=== PATIENT | female | born 1995 | race Caucasian/White ===

== ENCOUNTER 2018-11-11 21:46 | Emergency (ER) | payer MEDICAID, OTHER ==
--- NOTE | 2018-11-11 21:59 | ERPHSYRPT ---
- History of Present Illness Time Seen by Provider: 11/11/18 21:59 Source: patient, family Exam Limitations: no limitations Physician History: 23 y/o white female, who is over 12 weeks , presents with vomiting x 2 days. diclegis not helping. pt was being tx with macrobid for a uti. pt unable to hold any fluids down. pt has also noticed dry, swollen lips. denies cp, denies soa, denies abd pain. no vaginal bleeding. Timing/Duration: day(s) (2 to 3 ) Severity: moderate Associated Symptoms: nausea, vomiting, loss of appetite Allergies/Adverse Reactions: No Known Drug Allergies Allergy (Verified 05/09/16 09:46) Home Medications: Doxylamine Succinate/Vit B6 [Diclegis Dr 10-10 mg Tablet] 1 tablet PO DAILY PRN PRN 11/11/18 [History] Nitrofurantoin Macro 100 mg [Macrobid 100MG Capsule] 100 mg PO BID [History] Pnv,Calcium 72/Iron/Folic Acid [M-Shubham Plus Tablet] 1 tablet PO DAILY 11/11/18 [History] Hx Tetanus, Diphtheria Vaccination/Date Given: Yes Hx Influenza Vaccination/Date Given: No Hx Pneumococcal Vaccination/Date Given: No - Review of Systems Constitutional: No Symptoms Eyes: No Symptoms Ears, Nose, & Throat: Mouth Swelling, Other (lip swelling) Respiratory: No Symptoms Cardiac: No Symptoms Abdominal/Gastrointestinal: Nausea, Vomiting Genitourinary Symptoms: No Symptoms Musculoskeletal: No Symptoms Skin: No Symptoms Neurological: No Symptoms Psychological: No Symptoms Endocrine: No Symptoms Hematologic/Lymphatic: No Symptoms Immunological/Allergic: No Symptoms All Other Systems: Reviewed and Negative - Past Medical History Pertinent Past Medical History: No Neurological History: No Pertinent History ENT History: No Pertinent History Cardiac History: No Pertinent History Respiratory History: No Pertinent History Endocrine Medical History: No Pertinent History Musculoskeletal History: No Pertinent History GI Medical History: No Pertinent History History: No Pertinent History Psycho-Social History: No Pertinent History Female Reproductive Disorders: No Pertinent History - Past Surgical History Past Surgical History: No Neuro Surgical History: No Pertinent History Cardiac: No Pertinent History Respiratory: No Pertinent History Gastrointestinal: No Pertinent History Genitourinary: No Pertinent History Musculoskeletal: No Pertinent History Female Surgical History: No Pertinent History - Social History Smoking Status: Never smoker Exposure to second hand smoke: No Drug Use: none Patient Lives Alone: No - Nursing Vital Signs Nursing Vital Signs: Initial Vital Signs Temperature 97.9 F 11/11/18 21:59 Pulse Rate 111 H 11/11/18 21:59 Respiratory Rate 18 11/11/18 21:59 Blood Pressure 149/79 11/11/18 21:59 O2 Sat by Pulse Oximetry 97 11/11/18 21:59 Pain Scale Pain Intensity 0 - Physical Exam General Appearance: mild distress, alert, anxiety Eye Exam: PERRL/EOMI, eyes nml inspection Ears, Nose, Throat Exam: TMs normal, dry mucous membranes, other (upper and lower lip exudate) Neck Exam: normal inspection, non-tender, supple, full range of motion Respiratory Exam: normal breath sounds, lungs clear, airway intact, No chest tenderness, No respiratory distress Cardiovascular Exam: tachycardia Gastrointestinal/Abdomen Exam: soft, normal bowel sounds, No tenderness Pelvic Exam: not done Rectal Exam: not done Back Exam: normal inspection, normal range of motion, No CVA tenderness, No vertebral tenderness Extremity Exam: normal inspection, normal range of motion, pelvis stable Neurologic Exam: alert, oriented x 3, 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, 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 Skin Exam: normal color, warm, dry Lymphatic Exam: No adenopathy SpO2 Interpretation: normal O2 Delivery: Room Air Ordered Tests: Active Orders 24 hr Category Date Time Status BMP Stat Lab 11/11/18 22:24 Completed CBC W DIFF Stat Lab 11/11/18 22:24 Completed CULTURE,URINE Stat Lab 11/11/18 22:24 Received UA W/RFX UR CULTURE Stat Lab 11/11/18 22:24 Completed Medication Summary Generic Name Dose Route Start Last Admin Trade Name Freq PRN Reason Stop Dose Admin Nystatin 5 ml 11/12/18 22:29 11/11/18 23:08 Nystatin Suspension 60 Ml PO 11/12/18 22:30 5 ml STAT ONE Administration Discontinued Medications Generic Name Dose Route Start Last Admin Trade Name Freq PRN Reason Stop Dose Admin Sodium Chloride 1,000 mls @ 999 mls/hr 11/11/18 22:25 11/12/18 00:11 Sodium Chloride 0.9% 1000 Ml IV 11/11/18 23:25 Infused .Q1H1M STA Infusion Sodium Chloride Confirm 11/11/18 22:58 Sodium Chloride 0.9% 1000 Ml Administered 11/11/18 22:59 Dose 1,000 mls @ ud .ROUTE .STK-MED ONE Ceftriaxone Sodium/Dextrose 1 g in 50 mls @ 100 mls/hr 11/11/18 23:09 00:39 Rocephin 1 Gm-D5w 50 Ml Bag IV 11/11/18 23:38 Infused STAT STA Infusion Sodium Chloride 1,000 mls @ 999 mls/hr 11/11/18 23:10 11/12/18 00:11 Sodium Chloride 0.9% 1000 Ml IV 11/12/18 00:10 999 mls/hr .Q1H1M STA Administration Sodium Chloride Confirm 11/12/18 00:06 Sodium Chloride 0.9% 1000 Ml Administered 11/12/18 00:07 Dose 1,000 mls @ ud .ROUTE .STK-MED ONE Ceftriaxone Sodium/Dextrose Confirm 11/12/18 00:06 Rocephin 1 Gm-D5w 50 Ml Bag Administered 11/12/18 00:07 Dose 1 g in 50 mls @ ud IV .STK-MED ONE Methylprednisolone Sodium Succinate 125 mg 11/11/18 22:35 11/11/18 23:03 Solu-Medrol 125 Mg IV 11/11/18 22:36 125 mg STAT ONE Administration Methylprednisolone Sodium Succinate Confirm 11/11/18 22:58 Solu-Medrol 125 Mg Administered 11/11/18 22:59 Dose 125 mg .ROUTE .STK-MED ONE Nystatin Confirm 11/11/18 23:04 Nystatin Suspension 60 Ml Administered 11/11/18 23:05 Dose 60 ml PO .STK-MED ONE Promethazine HCl 12.5 mg 11/11/18 22:25 11/11/18 23:04 Phenergan 25 Mg Inj IM 11/11/18 22:26 12.5 mg STAT ONE Administration Promethazine HCl Confirm 11/11/18 22:58 Phenergan 25 Mg Inj Administered 11/11/18 22:59 Dose 25 mg .ROUTE .STK-MED ONE Lab/Rad Data: Laboratory Result Diagrams 11/11/18 22:24 11/11/18 22:24 Laboratory Results 11/11/18 11/11/18 11/11/18 Range/Units 22:24 22:24 22:24 WBC 9.6 (4.0-10.5) K/mm3 RBC 4.64 (4.1-5.4) M/mm3 Hgb 13.7 (12.0-16.0) gm/dl Hct 38.7 (35-47) % MCV 83.4 (78-100) fl MCH 29.5 (26-32) pg MCHC 35.4 (32-36) g/dl RDW 14.2 H (11.5-14.0) % Plt Count 188 (150-450) K/mm3 MPV 12.5 H (6-9.5) fl Gran % 75.4 H (36.0-66.0) % Eos # (Auto) 0.07 (0-0.5) Absolute Lymphs (auto) 1.62 (1.0-4.6) Absolute Monos (auto) 0.66 (0.0-1.3) Lymphocytes % 16.8 L (24.0-44.0) % Monocytes % 6.9 (0.0-12.0) % Eosinophils % 0.7 (0.00-5.0) % Basophils % 0.2 (0.0-0.4) % Absolute Granulocytes 7.26 H (1.4-6.9) Basophils # 0.02 (0-0.4) Sodium 138 (137-145) mmol/L Potassium 3.8 (3.5-5.1) mmol/L Chloride 107 (98-107) mmol/L Carbon Dioxide 12 L* (22-30) mmol/L Anion Gap 21.5 H (5-15) MEQ/L BUN 3 L (7-17) mg/dL Creatinine 0.57 (0.52-1.04) mg/dL Estimated GFR > 60.0 ML/MIN Glucose 76 (74-106) mg/dL Calcium 9.9 (8.4-10.2) mg/dL Urine Color JOHN (YELLOW) Urine Appearance CLOUDY (CLEAR) Urine pH 5.0 (5-6) Ur Specific [place] 1.027 (1.005-1.025) Urine Protein 100 (Negative) Urine Ketones MODERATE (NEGATIVE) Urine Blood MODERATE (0-5) Manoj/ul Urine Nitrite NEGATIVE (NEGATIVE) Urine Bilirubin NEGATIVE (NEGATIVE) Urine Urobilinogen 2 (0-1) mg/dL Ur Leukocyte Esterase SMALL (NEGATIVE) Urine WBC (Auto) 16-25 (0-5) /HPF Urine RBC (Auto) 11-15 (0-2) /HPF U Hyaline Cast (Auto) 6-10 (0-2) /LPF U Epithel Cells (Auto) FEW (FEW) /HPF Urine Bacteria (Auto) MANY (NEGATIVE) /HPF Urine Mucus (Auto) SLIGHT (NEGATIVE) /HPF Urine Culture Reflexed YES (NO) Urine Glucose 50 (NEGATIVE) mg/dL - Progress Progress: improved, re-examined Progress Note: 11/11/18 23:10 i had a long d/w pt and her sig other regarding her dx and tx plan including all medications. i discussed the risks, benefits and alternatives and their potential negative effects on fetus. she has opted for the following: one phenergan im injection, nystatin swish and spit, ivf, and single iv dose of rocephin. she will follow up with dr. tyler on Tuesday11/13/18. Counseled pt/family regarding: lab results, diagnosis, need for follow-up - Departure Departure Disposition: Home Clinical Impression: UTI (urinary tract infection), Oral candidiasis, Dehydration, Vomiting affecting Condition: Stable Critical Care Time: No Referrals: YUMIKO TYLER MD [Primary Care Provider] - Additional Instructions: drink plenty of fluids. keep your appointment with dr. tyler on tuesdayNovember 13. swish and spit the nystatin liquid. Prescriptions: Nystatin 60 ml [Nystatin SUSPENSION 60 ML] 5 ml PO Q8H #60 ml
[2018-11-11] MEDS ORDERED: Sodium Chloride 0.9% 1000 ML 1,000 ML IV STA ×2 (22:25→23:10)
[2018-11-11] MEDS ORDERED: Phenergan 25 MG INJ IM ONE (22:25)
[2018-11-11] MEDS ORDERED: solu-MEDROL 125 MG IV ONE (22:35)
[2018-11-11] MEDS ORDERED: Sodium Chloride 0.9% 1000 ML 1,000 ML ONE (22:58)
[2018-11-11] MEDS ORDERED: solu-MEDROL 125 MG ONE (22:58)
[2018-11-11] MEDS ORDERED: Phenergan 25 MG INJ ONE (22:58)
[2018-11-11 22:59] LABS: Appearance CLOUDY (CLEAR); Bacteria MANY /HPF (NEGATIVE); Bilirubin NEGATIVE (NEGATIVE); Blood MODERATE Ery/ul (0-5); Epithelial Cells FEW /HPF (FEW); Glucose 50 mg/dL (NEGATIVE); Ketones MODERATE (NEGATIVE); Leukocyte Esterase SMALL (NEGATIVE); Mucus SLIGHT /HPF (NEGATIVE); Nitrite NEGATIVE (NEGATIVE); Protein,Urine Dip 100 (Negative); Specific Gravity 1.027 (1.005-1.025); Urobilinogen 2 mg/dL (0-1)
[2018-11-11 23:00] LABS: BASOPHIL % 0.2 % (0.0-0.4); Basophil (Absolute #) 0.02 (0-0.4); Eosinophil % 0.7 % (0.00-5.0); Eosinophil (Absolute #) 0.07 (0-0.5); Granulocyte Absolute (ANC) 7.26 (1.4-6.9); Granulocytes % 75.4 % (36.0-66.0); Hematocrit 38.7 % (35-47); Hemoglobin 13.7 gm/dl (12.0-16.0); Lymphocyte (Absolute #) 1.62 (1.0-4.6); Lymphocytes % 16.8 % (24.0-44.0); Mean Cell Volume 83.4 fl (78-100); Mean Corpuscular Hemoglobin 29.5 pg (26-32); Mean Corpuscular Hgb Concent. 35.4 g/dl (32-36); Mean Platelet Volume 12.5 fl (6-9.5); Monocyte (Absolute #) 0.66 (0.0-1.3); Monocytes % 6.9 % (0.0-12.0); Platelet Count 188 K/mm3 (150-450); Red Blood Count 4.64 M/mm3 (4.1-5.4); Red Cell Distribution Width 14.2 % (11.5-14.0); White Blood Count 9.6 K/mm3 (4.0-10.5)
[2018-11-11] MEDS ORDERED: Nystatin SUSPENSION 60 ML PO ONE (23:04)
[2018-11-11 23:09] LABS: ANION GAP 21.5 MEQ/L (5-15); BLOOD UREA NITROGEN 3 mg/dL (7-17); CHLORIDE 107 mmol/L (98-107); Calcium 9.9 mg/dL (8.4-10.2); Creatinine 1 0.57 mg/dL (0.52-1.04); Glucose 76 mg/dL (74-106); Potassium 3.8 mmol/L (3.5-5.1); SODIUM 138 mmol/L (137-145)
[2018-11-11] MEDS ORDERED: ROCEPHIN 1 Gm-D5w 50 ml Bag** 1 G/50 ML IVPB IV STA (23:09)
[2018-11-11 23:22] LABS: Carbon Dioxide 12 mmol/L (22-30)
[2018-11-11 23:42] VITALS: O2SAT 100
[2018-11-12] MEDS ORDERED: ROCEPHIN 1 Gm-D5w 50 ml Bag** 1 G/50 ML IVPB IV ONE (00:06)
[2018-11-12] MEDS ORDERED: Sodium Chloride 0.9% 1000 ML 1,000 ML ONE (00:06)
[2018-11-12 01:06] VITALS: BP 95/54; PULSE 85
[2018-11-12 02:21] LABS: Slide Review 1 YES
[2018-11-12] MEDS ORDERED: Nystatin SUSPENSION 60 ML PO ONE (22:29)
== END 2018-11-12 01:19 | disposition home or self-care (01) ==
LOC: ED 21:46
DX: O23.41 Unspecified infection of urinary tract in pregnancy, first trimester (principal); O21.0 Mild hyperemesis gravidarum; Z3A.12 12 weeks gestation of pregnancy; E86.0 Dehydration; B37.0 Candidal stomatitis
CPT/HCPCS: 36415; 80048; 81001; 85025; 87077; 87086; 96360; 96361; 96365; 96372; 96374; 99284; J0696; J2550; J2930; A9270-GY

== ENCOUNTER 2019-05-15 05:09 | Inpatient (IN) | payer OTHER ==
[2019-05-15 07:19] LABS: Amphetamine,Urine NEGATIVE (NEGATIVE); Barbiturate,Urine NEGATIVE (NEGATIVE); Benzodiazepine,Urine NEGATIVE (NEGATIVE); Cocaine,Urine NEGATIVE (NEGATIVE); Methadone,Urine NEGATIVE (NEGATIVE); Opiate,Urine NEGATIVE (NEGATIVE); PCP,Urine NEGATIVE (NEGATIVE); THC,Urine NEGATIVE (NEGATIVE)
[2019-05-15 07:58] LABS: Amourphous Crystal FEW /HPF (NEGATIVE); Appearance CLOUDY (CLEAR); Bacteria RARE /HPF (NEGATIVE); Bilirubin NEGATIVE (NEGATIVE); Blood MODERATE Ery/ul (0-5); Epithelial Cells FEW /HPF (FEW); Glucose NEGATIVE (NEGATIVE); Hyaline Casts 0-2 /LPF (0-2); Ketones NEGATIVE (NEGATIVE); Leukocyte Esterase NEGATIVE (NEGATIVE); Mucus SLIGHT /HPF (NEGATIVE); Nitrite NEGATIVE (NEGATIVE); Protein,Urine Dip NEGATIVE (Negative); Specific Gravity 1.019 (1.005-1.025); Urobilinogen 2 mg/dL (0-1)
[2019-05-15] MEDS ORDERED: XYLOCAINE 1% HCL 20 ML MDV IJ PRN (08:37)
[2019-05-15] MEDS ORDERED: BRETHINE 1 MG/ML SQ PRN (08:41)
[2019-05-15] MEDS ORDERED: PITOCIN 30 UNITS/ LR 500 ML 500 ML IV SCH (09:00)
[2019-05-15 09:04] LABS: Absolute Neutrophil Ct (ANC) 7.83 (1.4-6.9); BASOPHIL % 0.1 % (0.0-0.4); Basophil (Absolute #) 0.01 (0-0.4); Eosinophil % 0.2 % (0.00-5.0); Eosinophil (Absolute #) 0.02 (0-0.5); Hematocrit 34.8 % (35-47); Hemoglobin 11.5 gm/dl (12.0-16.0); Lymphocyte (Absolute #) 1.26 (1.0-4.6); Lymphocytes % 13.1 % (24.0-44.0); Mean Cell Volume 91.1 fl (78-100); Mean Corpuscular Hemoglobin 30.1 pg (26-32); Mean Platelet Volume 12.4 fl (6-9.5); Monocyte (Absolute #) 0.52 (0.0-1.3); Monocytes % 5.4 % (0.0-12.0); Neutrophil % 81.2 % (36.0-66.0); Platelet Count 129 K/mm3 (150-450); Red Blood Count 3.82 M/mm3 (4.1-5.4); Red Cell Distribution Width 14.1 % (11.5-14.0); White Blood Count 9.6 K/mm3 (4.0-10.5)
[2019-05-15] MEDS: Lactated Ringers 1,000 ML IV SCH ×3 (09:07→21:52)
[2019-05-15] MEDS ORDERED: Zofran 4 MG/2 ML VIAL IV PRN (11:50)
[2019-05-15] MEDS ORDERED: Ephedrine Sulfate 50 MG/ML IV PRN (12:26)
[2019-05-15] MEDS ORDERED: OB EPIDURAL NAROPIN/SUFENTANIL IN NACL EPIDURAL PRN (12:26)
[2019-05-15] MEDS ORDERED: Lactated Ringers 1,000 ML IV ONE ×2 (12:26→21:43)
[2019-05-15] MEDS ORDERED: XYLOCAINE 2%/Epi 1:200000 20ML VIAL MPF ONE (12:32)
[2019-05-15] MEDS ORDERED: XYLOCAINE 2%/Epi 1:200000 20ML VIAL MPF IJ SCH (13:00)
[2019-05-15] MEDS ORDERED: Lactated Ringers 500 ML IV ONE (13:30)
[2019-05-15] MEDS ORDERED: NORCO 5/325 MG PO PRN (17:05)
[2019-05-15] MEDS ORDERED: TYLENOL EXTRA STRENGTH 500 MG PO PRN (17:05)
[2019-05-15] MEDS ORDERED: Anucort-HC SUPPOSITORY PR PRN (17:05)
[2019-05-15] MEDS ORDERED: Mylicon 80MG PO PRN (17:05)
[2019-05-15] MEDS ORDERED: Dulcolax 10 MG SUPP PR PRN (17:05)
[2019-05-15] MEDS ORDERED: Ambien 10 MG PO PRN (17:05)
[2019-05-15] MEDS ORDERED: CORTISONE 1% CREAM TP PRN (17:05)
[2019-05-15] MEDS: Dermoplast Spray TP PRN (18:32)
[2019-05-15] MEDS: TUCKS TP PRN (18:32)
[2019-05-15] MEDS: LANSINOH 40 GM TOP PRN (18:32)
[2019-05-15] MEDS: MOTRIN 400 MG PO PRN (18:44)
[2019-05-15] MEDS: Colace 100 MG PO SCH (21:52)
[2019-05-16 04:56] LABS: Absolute Neutrophil Ct (ANC) 7.67 (1.4-6.9); BASOPHIL % 0.1 % (0.0-0.4); Basophil (Absolute #) 0.01 (0-0.4); Eosinophil % 0.2 % (0.00-5.0); Eosinophil (Absolute #) 0.02 (0-0.5); Hematocrit 28.5 % (35-47); Hemoglobin 9.2 gm/dl (12.0-16.0); Lymphocyte (Absolute #) 2.03 (1.0-4.6); Mean Cell Volume 92.5 fl (78-100); Mean Corpuscular Hgb Concent. 32.3 g/dl (32-36); Mean Platelet Volume 12.8 fl (6-9.5); Monocyte (Absolute #) 0.95 (0.0-1.3); Monocytes % 8.9 % (0.0-12.0); Neutrophil % 71.8 % (36.0-66.0); Platelet Count 104 K/mm3 (150-450); Red Blood Count 3.08 M/mm3 (4.1-5.4); Red Cell Distribution Width 14.2 % (11.5-14.0); White Blood Count 10.7 K/mm3 (4.0-10.5)
[2019-05-16 04:58] LABS: Mean Corpuscular Hemoglobin 29.8 pg (26-32)
[2019-05-16] MEDS: MOTRIN 400 MG PO PRN ×3 (08:07→22:08)
[2019-05-16] MEDS: FERREX 150 PO SCH (08:38)
[2019-05-16] MEDS: Colace 100 MG PO SCH ×2 (08:38→22:08)
[2019-05-16] MEDS: TUCKS TP PRN (18:36)
[2019-05-16] MEDS: Dermoplast Spray TP PRN (18:36)
[2019-05-17] MEDS: MOTRIN 400 MG PO PRN ×2 (07:48→16:07)
--- NOTE | 2019-05-17 08:51 | PCM.DS ---
Discharge Summary Date of Admission: 05/15/19 08:15 Admitting Physician: YUMIKO HOOVER Consults: Consults on Case 05/15/19 12:26 Notify Anesthesia Provider PRN 05/15/19 17:05 Notify Physician ROUTINE Primary Care Provider: YUMIKO HOOVER Allergies Allergies No Known Drug Allergies Allergy (Verified 05/15/19 05:57) Hospital Summary - Hospital Course Hospital Course: patient arrived on 05/15 with SROM, labor was augmented with pitocin. had an uncomplicated with second degree perineal laceration repair. and well bonded with her infant. - Vitals & Intake/Output Vital Signs: Vital Signs Temperature 97.9 F 05/17/19 04:30 Pulse Rate 76 05/17/19 04:30 Respiratory Rate 16 05/17/19 04:30 Blood Pressure 99/63 05/17/19 04:30 O2 Sat by Pulse Oximetry 100 05/16/19 04:30 Intake & Output: Intake & Output 05/14/19 05/15/19 05/16/19 05/17/19 11:59 11:59 11:59 11:59 Intake Total 5000 2150 Balance 5000 2150 Weight 86.183 kg - Lab Result Diagrams: 05/16/19 04:15 Micro Results-Entire Visit: Microbiology 05/15/19 06:15 Urine Culture - Final Clean Catch Midstream MIXED SIDNEY; 3 OR MORE TYPES. NO PREDOMINANT ORGANISM. NO FURTHER WORKUP. PLEASE RESUBMIT IF CLINICALLY INDICATED. Discharge Exam General Appearance: no apparent distress, alert Respiratory Exam: normal breath sounds, lungs clear, No respiratory distress Cardiovascular Exam: regular rate/rhythm, normal heart sounds Gastrointestinal/Abdomen Exam: soft, No tenderness, No mass Extremity Exam: normal inspection, normal range of motion Skin Exam: normal color, warm, dry Final Diagnosis/Problem List - Final Discharge Diagnosis/Problem (1) Vaginal delivery Current Visit: Yes Status: Acute Code(s): O80 - ENCOUNTER FOR FULL-TERM UNCOMPLICATED DELIVERY (2) Second degree perineal laceration during delivery Current Visit: Yes Status: Acute Code(s): O70.1 - SECOND DEGREE PERINEAL LACERATION DURING DELIVERY (3) Mother currently breast-feeding Current Visit: Yes Status: Acute Code(s): Z39.1 - ENCOUNTER FOR CARE AND EXAMINATION OF LACTATING MOTHER - Discharge Disposition: Home, Self-Care Condition: Stable Prescriptions: New Ibuprofen 600 mg PO TID PRN #30 tablet Continue Pnv,Calcium 72/Iron/Folic Acid [M-Shubham Plus Tablet] 1 tablet PO DAILY Follow up with: YUMIKO HOOVER MD [Primary Care Provider] - 1 Week
[2019-05-17] MEDS: Colace 100 MG PO SCH (09:35)
[2019-05-17] MEDS: FERREX 150 PO SCH (09:35)
[2019-05-17] MEDS: Lactated Ringers 1,000 ML IV SCH ×2 (09:37→15:45)
[2019-05-17] MEDS: TUCKS TP PRN (11:01)
[2019-05-17 13:16] VITALS: BP 105/63; PULSE 91; O2SAT 95
[2019-05-17] MEDS: LANSINOH 40 GM TOP PRN (15:13)
== END 2019-05-17 17:15 | disposition home or self-care (01) | DRG 807 ==
LOC: OB 05:09 → OBSVTOIN 08:15 → MED SURG 05-16 16:11
PROVIDERS: ADMIT Family Medicine; ATTEND Family Medicine
PROC: 10E0XZZ Delivery of Products of Conception, External Approach (ICD-10-PCS; principal; 2019-05-15)
PROC: 0KQM0ZZ Repair Perineum Muscle, Open Approach (ICD-10-PCS; 2019-05-15)
DX: O70.1 Second degree perineal laceration during delivery (principal); Z37.0 Single live birth; Z3A.38 38 weeks gestation of pregnancy
CPT/HCPCS: 36415; 80307; 81001; 81003; 83986; 85025; 87086; 87340; G0378; J2590; J2795; A9270-GY

== ENCOUNTER 2021-11-03 18:08 | Emergency (ER) | payer OTHER ==
[2021-11-03] MEDS ORDERED: Zofran 4 MG/2 ML VIAL IV ONE (18:25)
[2021-11-03] MEDS ORDERED: Sodium Chloride 0.9% 1000 ML 1,000 ML IV STA (18:25)
[2021-11-03] MEDS ORDERED: TORAdol 30 mg Injection IV ONE (18:25)
[2021-11-03] MEDS ORDERED: TORAdol 30 mg Injection ONE (18:46)
[2021-11-03] MEDS ORDERED: Zofran 4 MG/2 ML VIAL ONE (18:46)
[2021-11-03] MEDS ORDERED: Sodium Chloride 0.9% 1000 ML 1,000 ML ONE (18:46)
[2021-11-03 19:10] LABS: Absolute Neutrophil Ct (ANC) 9.21 (1.4-6.9); Basophil (Absolute #) 0.02 (0-0.4); Eosinophil % 0.4 % (0.00-5.0); Eosinophil (Absolute #) 0.05 (0-0.5); Hematocrit 37.7 % (35-47); Hemoglobin 12.1 gm/dl (12.0-16.0); Lymphocyte (Absolute #) 1.46 (1.0-4.6); Mean Cell Volume 85.1 fl (78-100); Mean Corpuscular Hemoglobin 27.3 pg (26-32); Mean Corpuscular Hgb Concent. 32.1 g/dl (32-36); Mean Platelet Volume 12.1 fl (7.5-11.0); Monocyte (Absolute #) 0.47 (0.0-1.3); Monocytes % 4.2 % (0.0-12.0); Neutrophil % 82.2 % (36.0-66.0); Platelet Count 200 K/mm3 (150-450); Red Blood Count 4.43 M/mm3 (4.1-5.4); Red Cell Distribution Width 14.7 % (11.5-14.0); White Blood Count 11.2 K/mm3 (4.0-10.5)
[2021-11-03 19:24] LABS: ALBUMIN 4.2 g/dL (3.5-5.0); ALKALINE PHOSPHATASE 73 U/L (38-126); ANION GAP 13.9 MEQ/L (5-15); BLOOD UREA NITROGEN 8 mg/dL (7-17); CHLORIDE 106 mmol/L (98-107); Calcium 9.1 mg/dL (8.4-10.2); Carbon Dioxide 25 mmol/L (22-30); Creatinine 1 0.64 mg/dL (0.52-1.04); EST GLOMERULAR FILTRATION RATE > 60.0 ML/MIN; Glucose 151 mg/dL (74-106); LIPASE 75 U/L (23-300); Potassium 4.2 mmol/L (3.5-5.1); SGOT/AST 20 U/L (14-36); SGPT/ALT 23 U/L (0-35); SODIUM 140 mmol/L (137-145); Total Protein 7.7 g/dL (6.3-8.2)
[2021-11-03 19:25] LABS: Bacteria RARE /HPF (NEGATIVE); Epithelial Cells RARE /HPF (FEW); Mucus SLIGHT /HPF (NEGATIVE); RBC 26-50 /HPF (0-2)
[2021-11-03 19:26] LABS: Appearance CLEAR (CLEAR); Bilirubin NEGATIVE (NEGATIVE); Glucose NEGATIVE (NEGATIVE); Ketones NEGATIVE (NEGATIVE); Specific Gravity >=1.030 (1.005-1.025)
[2021-11-03 19:27] LABS: Nitrite NEGATIVE (NEGATIVE); Protein,Urine Dip TRACE (Negative); RBC MODERATE Ery/ul (0-5); Urine Cultured Indicated? YES; Urobilinogen 0.2 mg/dL (0-1)
[2021-11-03 19:28] LABS: Dipstick done @ ? MAIN LAB
--- NOTE | 2021-11-03 20:23 | ERPHSYRPT ---
- History of Present Illness Time Seen by Provider: 11/03/21 18:30 Historian: patient Exam Limitations: no limitations Patient Subjective Stated Complaint: Pt states 'About two hours ago I started to have horrible abdomen pain. It is stabbing and hurts." Triage Nursing Assessment: Pt presented alert and oriented X 3, skin wpd. Pt ambulates with a hunched over gait, able to speak in clear full setnences pt hoding her abdomen. Physician History: Patient is a 26-year-old female presents to our ED for evaluation of right upper quadrant pain. Patient states she was at home relaxing when pain started. Pain described scribed as a sharp sensation. Pain was constant. Pain was present upon arrival to our ED. No trauma. No fever. No specific association. Patient states the pain was not associated with meals. Patient denies a history of the same. No associated chest pain or shortness of breath. No nausea vomit ing or diaphoresis. Symptoms are mild to moderate in intensity. Palpation to right upper quadrant reproduces symptoms. Pain improves with rest. Patient voices no other complaint or concerns at this time. Timing/Duration: today, improved Quality: aching Abdominal Pain Onset Location: RUQ Pain Radiation: no radiation Severity of Pain-Max: moderate Severity of Pain-Current: mild Modifying Factors: Improves With: nothing Associated Symptoms: denies symptoms, No chest pain, No diarrhea, No fever /chills, No nausea, No neck pain, No shortness of breath, No syncope Previous symptoms: no prior history Allergies/Adverse Reactions: No Known Drug Allergies Allergy (Verified 05/15/19 05:57) Home Medications: Norgestimate-Ethinyl Estradiol [Tri Femynor 28 Tablet] 1 tab PO DAILY 11/03/21 [History] Sertraline HCl 50 mg [Zoloft 50 mg Tablet] 50 mg PO DAILY 11/03/21 [History] Hx Tetanus, Diphtheria Vaccination/Date Given: Yes Hx Influenza Vaccination/Date Given: No Hx Pneumococcal Vaccination/Date Given: No Immunizations Up to Date: Yes Travel Risk - International Travel Have you traveled outside of the country in past 3 weeks: No - Coronavirus Screening Are you exhibiting any of the following symptoms?: No Close contact with a COVID-19 positive Pt in past 14-21 Days: No - Vaccine Status Have you recieved a Covid-19 vaccination: Yes 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: [employer] - Vaccination Dates Date of 2cond Vaccination (if applicable): 2020 - Review of Systems Constitutional: No Symptoms, No Fever, No Chills Eyes: No Symptoms Ears, Nose, & Throat: No Symptoms Respiratory: No Symptoms, No Cough, No Dyspnea Cardiac: No Symptoms, No Chest Pain, No Edema, No Syncope Abdominal/Gastrointestinal: No Symptoms, No Abdominal Pain, No Nausea, No Vomiting, No Diarrhea Genitourinary Symptoms: No Symptoms, No Dysuria Musculoskeletal: No Symptoms, No Back Pain, No Neck Pain Skin: No Symptoms, No Rash Neurological: No Symptoms, No Dizziness, No Focal Weakness, No Sensory Changes Psychological: No Symptoms Endocrine: No Symptoms Hematologic/Lymphatic: No Symptoms Immunological/Allergic: No Symptoms All Other Systems: Reviewed and Negative - Past Medical History Pertinent Past Medical History: No Neurological History: No Pertinent History ENT History: No Pertinent History Cardiac History: No Pertinent History Respiratory History: No Pertinent History Endocrine Medical History: No Pertinent History Musculoskeletal History: No Pertinent History GI Medical History: No Pertinent History History: Other Psycho-Social History: Depression Female Reproductive Disorders: No Pertinent History Other Medical History: recurrent UTI at the beginning of - Past Surgical History Past Surgical History: No Neuro Surgical History: No Pertinent History Cardiac: No Pertinent History Respiratory: No Pertinent History Gastrointestinal: No Pertinent History Genitourinary: No Pertinent History Musculoskeletal: No Pertinent History Female Surgical History: No Pertinent History - Social History Smoking Status: Never smoker Exposure to second hand smoke: No Drug Use: none Patient Lives Alone: No - Female History Hx Last Menstrual Period: 10/18/2021 Hx Now: No - Nursing Vital Signs Nursing Vital Signs: Initial Vital Signs Temperature 97.2 F 11/03/21 18:16 Pulse Rate 88 11/03/21 18:16 Respiratory Rate 22 11/03/21 18:16 Blood Pressure 118/78 11/03/21 18:16 O2 Sat by Pulse Oximetry 98 11/03/21 18:16 Pain Scale Pain Intensity 0 - Physical Exam General Appearance: no apparent distress, alert Eye Exam: PERRL/EOMI, eyes nml inspection Ears, Nose, Throat Exam: normal ENT inspection, TMs normal, pharynx normal, moist mucous membranes Neck Exam: normal inspection, non-tender, supple, full range of motion Respiratory Exam: normal breath sounds, lungs clear, airway intact, No respiratory distress Cardiovascular Exam: regular rate/rhythm, normal heart sounds, normal peripheral pulses Gastrointestinal/Abdomen Exam: soft, normal bowel sounds, No tenderness, No mass Back Exam: normal inspection, normal range of motion, No CVA tenderness, No vertebral tenderness Extremity Exam: normal inspection, normal range of motion, pelvis stable Neurologic Exam: alert, oriented x 3, cooperative, normal mood/affect, nml cerebellar function, sensation nml, No motor deficits Skin Exam: normal color, warm, dry Lymphatic Exam: No adenopathy SpO2 Interpretation: normal SpO2: 98 O2 Delivery: Room Air - Course Nursing assessment & vital signs reviewed: Yes - CT Exams Abdomen/Pelvis CT Interpretation: Tele-radiologist Report (No comps. Mild distended gallbladder with 4 mm gallstone. 14 cm splenomegaly. 3.9 cm right ovarian cyst. L5 spondylolysis without spondylolisthesis.) Ordered Tests: Active Orders 24 hr Category Date Time Status IV Insertion STAT Care 11/03/21 18:25 Active ABDOMEN AND PELVIS W/0 CONTRAS [CT] Stat Exams 11/03/21 18:25 Taken CBC W DIFF Stat Lab 11/03/21 18:45 Completed CMP Stat Lab 11/03/21 18:45 Completed CULTURE,URINE Stat Lab 11/03/21 Received HCG,QUALITATIVE URINE Stat Lab 11/03/21 18:55 Completed LIPASE Stat Lab 11/03/21 18:45 Completed TROPONIN Q3H Lab 11/03/21 18:45 Completed TROPONIN Q3H Lab 11/03/21 21:30 Ordered TROPONIN Q3H Lab 11/04/21 00:30 Ordered TROPONIN Q3H Lab 11/04/21 03:30 Ordered TROPONIN Q3H Lab 11/04/21 06:30 Ordered UA W/RFX CULTURE Stat Lab 11/03/21 Completed Medication Summary Discontinued Medications Generic Name Dose Route Start Last Admin Trade Name Freq PRN Reason Stop Dose Admin Sodium Chloride 1,000 mls @ 999 mls/hr 11/03/21 18:25 11/03/21 18:48 Sodium Chloride 0.9% 1000 Ml IV 11/03/21 19:25 999 mls/hr .Q1H1M STA Administration Sodium Chloride Confirm 11/03/21 18:46 Sodium Chloride 0.9% 1000 Ml Administered 11/03/21 18:47 Dose 1,000 mls @ ud .ROUTE .STK-MED ONE Ketorolac Tromethamine 30 mg 11/03/21 18:25 11/03/21 18:52 Ketorolac Tromethamine 30 Mg/Ml Inj IV 11/03/21 18:26 30 mg STAT ONE Administration Ketorolac Tromethamine Confirm 11/03/21 18:46 Ketorolac Tromethamine 30 Mg/Ml Inj Administered 11/03/21 18:47 Dose 30 mg .ROUTE .STK-MED ONE Ondansetron HCl 4 mg 11/03/21 18:25 11/03/21 18:50 Ondansetron Hcl 4 Mg/2 Ml Vial IV 11/03/21 18:26 4 mg STAT ONE Administration Ondansetron HCl Confirm 11/03/21 18:46 Ondansetron Hcl 4 Mg/2 Ml Vial Administered 11/03/21 18:47 Dose 4 mg .ROUTE .STK-MED ONE Lab/Rad Data: Laboratory Result Diagrams 11/03/21 18:45 11/03/21 18:45 Laboratory Results 11/03/21 11/03/21 11/03/21 Range/Units Unknown 18:55 18:45 WBC (4.0-10.5) K/mm3 RBC (4.1-5.4) M/mm3 Hgb (12.0-16.0) gm/dl Hct (35-47) % MCV (78-100) fl MCH (26-32) pg MCHC (32-36) g/dl RDW (11.5-14.0) % Plt Count (150-450) K/mm3 MPV (7.5-11.0) fl Gran % (36.0-66.0) % Eos # (Auto) (0-0.5) Absolute Lymphs (auto) (1.0-4.6) Absolute Monos (auto) (0.0-1.3) Lymphocytes % (24.0-44.0) % Monocytes % (0.0-12.0) % Eosinophils % (0.00-5.0) % Basophils % (0.0-0.4) % Absolute Granulocytes (1.4-6.9) Basophils # (0-0.4) Sodium (137-145) mmol/L Potassium (3.5-5.1) mmol/L Chloride (98-107) mmol/L Carbon Dioxide (22-30) mmol/L Anion Gap (5-15) MEQ/L BUN (7-17) mg/dL Creatinine (0.52-1.04) mg/dL Estimated GFR ML/MIN Glucose (74-106) mg/dL Calcium (8.4-10.2) mg/dL Total Bilirubin (0.2-1.3) mg/dL AST (14-36) U/L ALT (0-35) U/L Alkaline Phosphatase (38-126) U/L Troponin I < 0.012 (0.000-0.034) ng/mL Serum Total Protein (6.3-8.2) g/dL Albumin (3.5-5.0) g/dL Lipase (23-300) U/L Urinalys Dipstick Clnc MAIN LAB Urine Color YELLOW (YELLOW) Urine Appearance CLEAR (CLEAR) Urine pH 7.0 (5-6) Ur Specific [place] >=1.030 (1.005-1.025) POC Urine Protein Conf TRACE (Negative) Urine Ketones NEGATIVE (NEGATIVE) Urine Nitrite NEGATIVE (NEGATIVE) Urine Bilirubin NEGATIVE (NEGATIVE) Urine Urobilinogen 0.2 (0-1) mg/dL Urine Leukocytes NEGATIVE (NEGATIVE) Urine WBC (Auto) 3-5 (0-5) /HPF Urine RBC (Auto) 26-50 (0-2) /HPF U Epithel Cells (Auto) RARE (FEW) /HPF Urine Bacteria (Auto) RARE (NEGATIVE) /HPF Urine RBC MODERATE (0-5) Manoj/ul Urine Mucus (Auto) SLIGHT (NEGATIVE) /HPF Ur Culture Indicated? YES Urine Glucose NEGATIVE (NEGATIVE) mg/dL Urine HCG, Qual NEGATIVE (Negative) 11/03/21 11/03/21 Range/Units 18:45 18:45 WBC 11.2 H (4.0-10.5) K/mm3 RBC 4.43 (4.1-5.4) M/mm3 Hgb 12.1 (12.0-16.0) gm/dl Hct 37.7 (35-47) % MCV 85.1 (78-100) fl MCH 27.3 (26-32) pg MCHC 32.1 (32-36) g/dl RDW 14.7 H (11.5-14.0) % Plt Count 200 (150-450) K/mm3 MPV 12.1 H (7.5-11.0) fl Gran % 82.2 H (36.0-66.0) % Eos # (Auto) 0.05 (0-0.5) Absolute Lymphs (auto) 1.46 (1.0-4.6) Absolute Monos (auto) 0.47 (0.0-1.3) Lymphocytes % 13.0 L (24.0-44.0) % Monocytes % 4.2 (0.0-12.0) % Eosinophils % 0.4 (0.00-5.0) % Basophils % 0.2 (0.0-0.4) % Absolute Granulocytes 9.21 H (1.4-6.9) Basophils # 0.02 (0-0.4) Sodium 140 (137-145) mmol/L Potassium 4.2 (3.5-5.1) mmol/L Chloride 106 (98-107) mmol/L Carbon Dioxide 25 (22-30) mmol/L Anion Gap 13.9 (5-15) MEQ/L BUN 8 (7-17) mg/dL Creatinine 0.64 (0.52-1.04) mg/dL Estimated GFR > 60.0 ML/MIN Glucose 151 H (74-106) mg/dL Calcium 9.1 (8.4-10.2) mg/dL Total Bilirubin 0.20 (0.2-1.3) mg/dL AST 20 (14-36) U/L ALT 23 (0-35) U/L Alkaline Phosphatase 73 (38-126) U/L Troponin I (0.000-0.034) ng/mL Serum Total Protein 7.7 (6.3-8.2) g/dL Albumin 4.2 (3.5-5.0) g/dL Lipase 75 (23-300) U/L Urinalys Dipstick Clnc Urine Color (YELLOW) Urine Appearance (CLEAR) Urine pH (5-6) Ur Specific [place] (1.005-1.025) POC Urine Protein Conf (Negative) Urine Ketones (NEGATIVE) Urine Nitrite (NEGATIVE) Urine Bilirubin (NEGATIVE) Urine Urobilinogen (0-1) mg/dL Urine Leukocytes (NEGATIVE) Urine WBC (Auto) (0-5) /HPF Urine RBC (Auto) (0-2) /HPF U Epithel Cells (Auto) (FEW) /HPF Urine Bacteria (Auto) (NEGATIVE) /HPF Urine RBC (0-5) Manoj/ul Urine Mucus (Auto) (NEGATIVE) /HPF Ur Culture Indicated? Urine Glucose (NEGATIVE) mg/dL Urine HCG, Qual (Negative) - Progress Progress: improved Progress Note: Patient reassessed. Pain resolved. Case discussed with Dr. Carey Of general surgery who feels patient may get an outpatient gallbladder ultrasound and follow-up in his office.No indication for obtaining a gallbladder ultrasound through the emergency room at this time.Plan of care discussed with patient. She agrees to obtain the outpatient ultrasound as recommended. Mother at bedside. They voiced no other complaints or concerns at this time. Portions of this note were created with voice recognition technology. There may be grammatical, spelling, punctuation or sound alike errors 11/03/21 20:[address] Ivette Will see patient in: office Counseled pt/family regarding: lab results, diagnosis, need for follow-up, rad results - Departure Departure Disposition: Home Clinical Impression: Cholelithiasis, Splenomegaly, Right ovarian cyst, Spondylolisthesis at L5-S1 level, Abdominal pain, Leukocytosis (leucocytosis), Hematuria Condition: Stable Critical Care Time: No Referrals: YUMIKO HOOVER MD [Primary Care Provider] - Follow up/PCP as directed MELINDA SAMUEL [COURTESY STAFF] - Follow up/PCP as directed Additional Instructions: Discharge/Care Plan DICKSON YANES was seen on 11/03/21 in the Emergency Room. The patient was counseled regarding Diagnosis,Lab results, Imaging studies, need for follow up and when to return to the Emergency Room. Prescriptions given: Discharge Note I have spoken with the patient and/or caregivers. I have explained the patient's condition, diagnosis and treatment plan based on the information available to me at this time. I have answered the patient's and/or caregiver's questions and addressed any concerns. The patient and/or caregivers have as good understanding of the patient's diagnosis, condition and treatment plan as can be expected at this point. The vital signs have been stable. The patient's condition is stable and appropriate for discharge from the emergency department. The patient will pursue further outpatient evaluation with the primary care physician or other designated or consulting physician as outlined in the discharge instructions. The patient and/or caregivers are agreeable to this plan of care and follow-up instructions have been explained in detail. The patient and/or caregivers have received these instruction. The patient/and or caregivers are aware that any significant change in condition or worsening of symptoms should prompt an immediate return to this or the closest emergency department or call 911.
[2021-11-03 20:49] VITALS: BP 125/61; PULSE 87
[2021-11-03 20:50] VITALS: O2SAT 98
--- NOTE | 2021-11-04 08:45 | XRAY ---
Indication: Bilateral upper abdomen pain. Nausea and dizziness. Multiple contiguous axial images obtained through the abdomen and pelvis without contrast. Comparison: None Lung bases clear. Heart not enlarged. Stomach is distended with food/fluid. Noncontrasted stomach and bowel loops appear nonobstructed with normal appendix. Gallbladder is mildly distended with 4 mm stone. No abnormal biliary distention. Incidental 14 cm splenomegaly and 3.9 cm right ovary cyst. No free fluid/air. Remaining liver, gallbladder, pancreas, spleen, adrenal glands, kidneys, ureters, bladder, uterus, and aorta are unremarkable for noncontrast exam. 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 No ventral or inguinal hernias. Impression: 1. Distended gallbladder with micro-calculus. Sonogram may yield further information if clinically warranted. 2. 3.9 cm right ovary cyst, splenomegaly, and L5 spondylolysis without listhesis. 3. Remaining CT abdomen/pelvis without contrast exam is negative.
== END 2021-11-03 21:21 | disposition home or self-care (01) ==
LOC: ED 18:08
DX: K80.20 Calculus of gallbladder without cholecystitis without obstruction (principal); R16.1 Splenomegaly, not elsewhere classified; N83.201 Unspecified ovarian cyst, right side; M43.17 Spondylolisthesis, lumbosacral region; R10.31 Right lower quadrant pain; D72.829 Elevated white blood cell count, unspecified; R31.9 Hematuria, unspecified
CPT/HCPCS: 36000; 36415; 74176; 80053; 81015; 83690; 84484; 84703; 85025; 87086; 96374; 96375; 99284; J1885; J2405

== ENCOUNTER 2022-05-24 08:32 | Day surgery (SDC) | payer OTHER ==
[~2022-05-24 08:32] MED LIST: Lactated Ringers 1,000 ML IV SCH
[2022-05-24] MEDS ORDERED: Sensorcaine 0.25% 10 ML ONE (08:50)
--- NOTE | 2022-05-24 08:52 | HP ---
DATE OF SURGERY: 05/24/2022 HISTORY OF PRESENT ILLNESS: The patient is a 26-year-old had some right back pain radiating right upper quadrant pain, nausea. No jaundice. No blood thinner. I feel she has acute exacerbation of chronic cholecystitis/cholelithiasis. I feel she would benefit from cholecystectomy. PAST MEDICAL HISTORY: Anxiety. PAST SURGICAL HISTORY: MEDICATIONS: Sertraline. ALLERGIES: NKDA. FAMILY HISTORY: Breast cancer. SOCIAL HISTORY: No smoking. REVIEW OF SYSTEMS: Fourteen systems reviewed. No chest pain or palpitations. Other systems negative or noncontributory as above and per preadmission questionnaire. PHYSICAL EXAMINATION: GENERAL: No acute distress. HEENT: Sclerae nonicteric. NECK: No JVD. CHEST: Equal excursion, nonlabored breathing. CVS: Regular rate and rhythm. ABDOMEN: Soft. No peritoneal signs. EXTREMITIES: No significant edema. NEURO: Alert, oriented, moving extremities symmetrically. PSYCH: Appropriate mood and affect. IMPRESSION: Acute exacerbation of chronic cholecystitis, symptomatic cholelithiasis. I feel the patient will benefit from cholecystectomy. Risks and benefits explained in detail including but not limited to bleeding or infection, risk of trocar injury or hernia, risk of bowel, bladder or blood vessel injury, risk of bile leak, bile duct injury, retained stone or sludge possibly requiring further procedure either open or ERCP, general risk of anesthesia, deep venous thrombosis, pulmonary embolism, pneumonia, perioperative risk of aches, pains, bloating, constipation and/or loose stools possibly even chronic in nature. The patient understands and agrees to the planned procedure, will proceed with laparoscopic cholecystectomy with possible open as an outpatient.
[2022-05-24] MEDS ORDERED: MEFOXIN 2 GM PREMIX** 2 GM/50 ML ML IV SCH (09:00)
[2022-05-24] MEDS ORDERED: MEFOXIN 2 GM PREMIX** 2 GM/50 ML ML IV ONE (09:07)
[2022-05-24] MEDS ORDERED: Lactated Ringers 1,000 ML IV ONE (09:08)
[2022-05-24] MEDS ORDERED: Decadron 4 MG INJ ONE (10:51)
[2022-05-24] MEDS ORDERED: TORAdol 30 mg Injection ONE (10:51)
[2022-05-24] MEDS ORDERED: BRIDION 200MG/2ML IV ONE (10:51)
[2022-05-24] MEDS ORDERED: Zemuron 100 MG/10 ML ONE (10:51)
[2022-05-24] MEDS ORDERED: Xylocaine-Mpf 2% 5 Ml Vial ONE (10:51)
[2022-05-24] MEDS ORDERED: Zofran 4 MG/2 ML VIAL ONE (10:51)
[2022-05-24] MEDS ORDERED: DIPRIVAN 200 MG/20 ML IV ONE (10:51)
[2022-05-24] MEDS ORDERED: SUBLIMAZE 100 MCG/2 ML ONE ×2 (10:52→12:21)
[2022-05-24 14:11] VITALS: BP 116/79; PULSE 101; O2SAT 98
--- NOTE | 2022-05-24 15:30 | OP ---
SURGERY DATE/TIME: 05/24/2022 1126 PREOPERATIVE DIAGNOSIS: Acute exacerbation of chronic cholecystitis, symptomatic cholelithiasis. POSTOPERATIVE DIAGNOSIS: Acute exacerbation of chronic cholecystitis, symptomatic cholelithiasis. PROCEDURE: Laparoscopic cholecystectomy. SURGEON: Dr. Brando Weems. ANESTHESIA: General. ESTIMATED BLOOD LOSS: Minimal. INDICATIONS: As noted above. Risks and benefits explained in detail but not limited to and consent obtained. DESCRIPTION OF PROCEDURE AND FINDINGS: The patient was taken to the operating room. General anesthesia was induced. Abdomen prepped and draped in usual sterile fashion. After official time out and no disagreement with planned procedure, a transverse incision made in the supraumbilical area. Fascia grasped, pulled upward. Veress needle inserted and tested with saline. Pneumoperitoneum accomplished insufflating opening pressure of 0-15. A 5 mm bladeless port and camera were inserted without difficulty followed by two - 5 mm right upper quadrant ports and 11 mm epigastric port. There is no evidence of any intraabdominal injury secondary to trocar insertion. The gallbladder grasped. It had some mild chronic inflammatory reaction. Dissection carried posterior, lateral to anterior fashion slowly and carefully the cystic duct and infundibular junction isolated until critical view obtained anteriorly and posteriorly. Once this is accomplished, the cystic duct and cystic artery were clipped x3 and divided in the usual fashion. There were little oozing side branches off the cystic artery, cystic vein clipped directly on the gallbladder wall as necessary. The gallbladder is slowly and carefully dissected free from its dense attachments to liver bed staying directly on the gallbladder wall. Just prior to releasing from final attachments the liver bed re-inspected. Clips noted in place in the cystic duct and cystic artery stumps. No signs of any active bleeding or bile leakage. It was felt there was no benefit from drain placement. The gallbladder was released from final attachments to anterior edge of the liver, placed in the provided sac and pulled up in the epigastrium. Decompressed slightly with a clamped allowing the gallbladder and bag to be pulled free and passed off. The fascial defect was then closed with puncture closure device with #1 Vicryl. Copious amount of irrigation accomplished lateral to the liver and subhepatic space irrigating clear. Clips noted to be in place cystic duct and cystic artery stumps. No signs of any active bleeding or bile leakage. It was felt there was no benefit in drain placement. Pneumoperitoneum decompressed. The wound irrigated out. Skin incision closed with 4-0 Vicryl. Steri-Strips and sterile dressing applied. 0.25% Marcaine local injected along the skin incision fascial defect. The patient tolerated the procedure well. There were no immediate complications.
== END 2022-05-24 14:20 | disposition home or self-care (01) ==
LOC: SDC 08:32
PROVIDERS: ATTEND Surgery
DX: K80.10 Calculus of gallbladder with chronic cholecystitis without obstruction (principal); Z80.3 Family history of malignant neoplasm of breast
CPT/HCPCS: 81025; J0694; J1100; J1885; J2405; J2704; J3010